=== PATIENT | male | born 1940 | race Caucasian/White ===

== ENCOUNTER 2016-11-26 16:15 | Emergency (ER) | payer MEDICARE, OTHER ==
[~2016-11-26] VITALS: Ht 170.2 cm; Wt 95.5 kg
[~2016-11-26 16:15] MED LIST: AMLO5TAB2 PO; ASPI-973 PO; LISI-567 PO; METO50TA3 PO; NITR0.4T SL; OMEG-38 PO; SIMV20TA4 PO; TRAZ-115 PO
[2016-11-26 16:27] VITALS: BP 137/69; PULSE 79; RESP 16; O2SAT 94
[2016-11-26 16:51] LABS: BASOPHILS % (AUTO) 0.2 % (0-3); EOSINOPHILS % (AUTO) 2.2 % (0-5); MONOCYTES % (AUTO) 11.9 % (4-12); Mean Corpuscular Hemoglobin 28.9 pg (27.0-35.0); Mean Corpuscular Volume 85.1 fL (81-100); NEUTROPHILS % (AUTO) 69.8 % (40-74); Platelet Count 210 bil/L (150-400)
--- NOTE | 2016-11-26 16:55 | ED.REPORT ---
HPI-Abd Pain M 40 and Over Date of Service Nov 26, 2016 ED Provider: Dr. Lang 76 y/o male presents the ED with a hx of bladder cancer s/p cystectomy, HTN, hypercholesterolemia and CAD s/p angioplasty who presents to the ED referred from Dr. Rankin complaining of severe lower abd pain that has been present for 1.5 weeks. Pt has a hx of an umbilical hernia and a chronically enlarged testicle that has been present for 1.5 years after trauma. Pain is exacerbated with touch. Pain is worse over the bladder. Associated symptoms include hematuria (This AM) and intermittent diarrhea and constipation. Pt denies vomiting and fever. Nursing Notes Stated Complaint: ABDOMINAL PAIN SENT DR RANKIN Chief Complaint: Male Abdominal Pain Nursing Notes Reviewed: Yes Allergies: Coded Allergies: chlorhexidine (Verified Adverse Reaction, Severe, Rash, 01/18/16) Scheduled Amlodipine (Amlodipine) 5 Mg Tablet 5 MG PO DAILY Amoxicillin/Clav K 875-125 mg (Augmentin 875-125 mg) 1 Each Tablet 1 TABLET PO BID Aspirin (Aspirin) 81 Mg Tablet 81 MG PO DAILY Lisinopril (Lisinopril) 20 Mg Tablet 20 MG PO BID Metoprolol Tartrate (Metoprolol Tartrate) 50 Mg Tablet 50 MG PO BID [place]-3/Dha/Epa/Fish Oil (Fish Oil 1,000 mg Softgel) 1 Each Capsule 1 EACH PO DAILY Simvastatin (Simvastatin) 20 Mg Tablet 20 MG PO HS Trazodone (Trazodone) 50 Mg Tablet 50 MG PO HS Scheduled PRN Nitroglycerin SL (Nitrostat) 0.4 Mg Tab.subl 0.4 MG SL Q5MIN PRN PRN ANGINA General Time Seen by MD: 16:55 Chief Complaint Abdominal pain Hx Obtained From: Patient Arrived By: Walk-in Sudden in Onset?: No Onset Occurred: More than a week ago... Symptom Duration: Since onset Location: : Abdomen lower (worse): Diffuse Quality: Painful Severity: Current: Mild Severity: Maximum: Moderate Associated with: Reports: Constipation, Diarrhea, Hematuria Past Medical History Past Medical History Bladder cancer Reports: COPD, Coronary artery disease, Hyperlipidemia, Hypertension Past Surgical History Cystectomy Reports: Angioplasty, Tonsillectomy Smoking History Former Smoker Social History Alcohol Use: "Social" Drug Use: Denies drug use Ambulatory Status Independent Review of Systems Basic Review of Systems Eyes: Vision NL, No discharge ENT: Hearing NL, No pain, No nasal congestion, No pharyngeal pain Neurologic: NL mental status, No weakness, No numbness Psychiatric: Normal thought content Constitutional: Denies: Fever Respiratory: Denies: Shortness of breath Cardiovascular: Denies: Chest pain GI: Reports: Abdominal pain, Constipation, Diarrhea, Denies: Vomiting Male: Reports Hematuria, Denies Dysuria Complete sys rev & neg: except as marked. Physical Exam Initial Vital Signs Vital Signs (First) Date Time Temp Pulse Resp B/P Pulse Ox O2 Delivery O2 Flow Rate FiO2 11/26/16 16:27 36.8 79 16 137/69 94 Room Air Initial VS: Reviewed Head / Eyes: Atraumatic, Normocephalic, PERRL ENT: Mucous membranes moist, Conjunctiva normal, No scleral icterus Neck: Supple, Full range of motion Extremities: Vascular intact, Neuro intact, No swelling, No tenderness Skin: Warm, Dry, No cyanosis Neurologic: Alert, Oriented, Nonfocal Psychiatric: Mood/affect normal, Behavior normal, Normal thought content General/Constitutional: Awake, Alert Respiratory / Chest: Breath sounds NL, Breath sounds = bilat, No respiratory distress, No rales, No rhonchi, No wheezing Cardiovascular: Heart rate NL, Regular rhythm, Heart sounds NL, Peripheral circulation NL Abdomen: Soft 1cm soft, reducable hernia. Suprapubic tenderness Back: Atraumatic, Full range of motion Male Genitourinary: Penis NL R hydrocele. No warmth or tenderness to testicles. Interpretation & Diagnostics Lab Results Interpretation Result Diagram: 11/26/16 1640 11/26/16 1640 Test 11/26/16 16:40 White Blood Count 9.0th/mm3 (3.8-10.1) Red Blood Count 5.44mil/mm3 (4.40-5.80) Hemoglobin 15.7g/dL (13.8-17.2) Hematocrit 46.3% (41.0-50.0) Mean Corpuscular Volume 85.1fL (81-100) Mean Corpuscular Hemoglobin 28.9pg (27.0-35.0) Mean Corpuscular Hemoglobin Concent 33.9% (32.0-37.0) Red Cell Distribution Width 14.2% (12.3-15.4) Platelet Count 210bil/L (150-400) Neutrophils (%) (Auto) 69.8% (40-74) Lymphocytes (%) (Auto) 15.7% (14-46) Monocytes (%) (Auto) 11.9% (4-12) Eosinophils (%) (Auto) 2.2% (0-5) Basophils (%) (Auto) 0.2% (0-3) Sodium Level 139mEq/L (134-144) Potassium Level 4.3mEq/L (3.5-5.2) Chloride Level 102mEq/L (97-108) Carbon Dioxide Level 22mmol/L (18-29) Blood Urea Nitrogen 20mg/dL (8-27) Creatinine 1.13mg/dL (0.76-1.27) Estimat Glomerular Filtration Rate 67mL/min (>59) Glucose Level 102mg/dL (60-99) Lactic Acid Level 0.9mmol/L (0.4-2.0) Calcium Level 9.3mg/dL (8.5-10.1) Magnesium Level 2.2mg/dL (1.6-2.6) Total Bilirubin 0.5mg/dL (0.0-1.2) Aspartate Amino Transf (AST/SGOT) 34U/L (0-50) Alanine Aminotransferase (ALT/SGPT) 48U/L (0-44) Alkaline Phosphatase 59U/L (25-160) Total Protein 7.1g/dL (6.4-8.4) Albumin 3.5g/dL (3.4-5.0) Lipase 14U/L (13-60) Hold Rucker Top Tube Received (Received) CT Abd / Pelvis Interpretation IMPRESSION: 1. Sigmoid diverticulitis without diverticular abscess or macroscopic free air. 2. Bilateral fat containing inguinal hernias, moderate to large on the right and small the left. 3. 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 Recommend followup to demonstrate stability. 3. Small hypervascular lesion within the spleen measuring up to 1.3 cm appears unchanged in size compared to the 09/01/14 study. Dictated by: Aguilar Lombardo M.D. on 11/26/2016 at 18:50 Study type: Abdominal CT IV contrast, Abdom CT oral contrast Interpretation / Wet Read by: Interpret - Radiologist Re-Eval/Medical Decision Med Decision/Clinical Course Lower abdominal tenderness and diarrhea with stable labs and vital signs, suggestive of diverticulitis, there are other multiple incidental findings which will need close follow-up but appears stable compared to a CAT scan from greater than 9 months ago. Patient generally is in no acute distress. Return and follow-up precautions given. Specifically there is no indication that he has a strangulated hernia based on clinical exam or imaging. Turn and follow-up precautions given. Time of Eval: 19:00 Patient Status: Condition improved Re-Evaluation/Progress Note: Updated pt of labs and imaging results. Discussed plan for discharge and follow up. All questions addressed. Counseled Regarding: Diagnosis, Lab results, Need for follow-up, When/why to return to ED Discharge & Departure Primary Impression: Diverticulitis Diverticulitis site: large intestine Diverticulitis bleeding: without bleeding Diverticulitis complication: without perforation or abscess Qualified Code: K57.32 - Diverticulitis of large intestine without perforation or abscess without bleeding Additional Impressions: Aortic dissection Aortic location: abdominal aorta Qualified Code: I71.02 - Dissection of abdominal aorta Hernia Splenic lesion Disposition: Home Vital Signs - All Vital Signs Date Time Temp Pulse Resp B/P Pulse Ox O2 Delivery O2 Flow Rate FiO2 11/26/16 19:11 37.0 88 16 169/63 95 Room Air 11/26/16 16:27 36.8 79 16 137/69 94 Room Air )( All Prior VS Reviewed: Yes Condition: Improved Additional Instructions: The reason for your pain seems to be diverticulitis, this explains why you have recently had diarrhea as well. Take the antibiotic Augmentin as directed. Use Tylenol for pain. You should follow-up very closely with your primary care doctor for further evaluation of multiple incidental but concerning CT findings including an infrarenal abdominal aortic dissection, bilateral inguinal hernias, and a hypervascular lesion in your spleen. I have given you a copy of your CAT scan so that you can take it directly to your primary care doctor. Keep a close eye on your blood pressure, continue to keep it under control. Return to the ER if you develop a high fever, severe pain, or other concerns. Referrals: Frenando Whitman DO (PCP) Brenton Hammonds MD Scribe Attestation Portions of this note were transcribed by Perlita Ventura and Dalton Denney I (Dr. Anup Dickerson) personally performed the history, physical exam and medical decision- making; I reviewed and confirmed the accuracy of the information in the transcribed note. Signed by: Perlita Ventura. Sissy, 11/26/2016, 1915 copies to: Fernando Whitman DO; Brenton Hammonds MD, Timothy S DO Nov 26, 2016 16:55 Dalton Dawson Nov 26, 2016 17:15 Perlita Ventura Nov 26, 2016 17:35
[2016-11-26 17:18] LABS: Magnesium 2.2 mg/dL (1.6-2.6)
[2016-11-26] MEDS ORDERED: 0.9% Sodium Chloride 1,000 ML IV ONE (17:20)
--- NOTE | 2016-11-26 18:59 | DRSVH ---
PROCEDURE: CT ABDOMEN AND PELVIS WITH CONTRAST ([id number]) INDICATIONS: lower abdominal pain, hematuria TECHNIQUE: After the administration of oral and intravenous contrast, 5 mm thick sections acquired from the diap hragms to the symphysis. 5 mm thick coronal and sagittal reformats were performed. For radiation do se reduction, the following was used: automated exposure control, adjustment of mA and/or kV accordi ng to patient size. COMPARISON: Outside Film, CT, CT ABD PELVIS W&WO CON, 01/09/2016, 15:30. FINDINGS: Image quality: Excellent. ABDOMEN: Lung bases: There is mild dependent atelectasis in the lung bases. There is nodular pleural thickeni ng along the hemidiaphragms again noted bilaterally. Heart size is normal. Solid organs: No focal hepatic lesions. The spleen is normal in size. There is a small hypervascul ar lesion within the spleen measuring up to 1.3 cm which appears increased in prominence. There are small dependent foci of hyperdensity in the gallbladder neck compatible with small gallstones. No ga llbladder wall thickening or pericholecystic fluid. Biliary system is non-dilated. Pancreas enhance s normally. No adrenal nodules. Kidneys demonstrate no hydronephrosis. Peritoneum and bowel: Stomach and small bowel loops are normal in caliber and wall thickness. There is colonic diverticulosis with associated inflammatory fat stranding and segmental wall thickening a long the sigmoid colon consistent with diverticulitis. No diverticular abscess or macroscopic free a ir. No free fluid. Nodes and vessels: No retroperitoneal or mesenteric adenopathy. Aorta and inferior vena cava are no rmal in caliber. There is a short segment dissection of the intrarenal abdominal aorta redemonstrate d. There is extensive atherosclerotic vascular calcification. Miscellaneous: No ventral hernias. PELVIS: Genitourinary: Bladder wall thickness is normal. Miscellaneous: There are bilateral fat containing inguinal hernias, small on the left and moderate t o large on the right. No inguinal adenopathy. Bones: No suspicious bony lesions. No vertebral body compression fractures. IMPRESSION: 1. Sigmoid diverticulitis without diverticular abscess or macroscopic free air. 2. Bilateral fat containing inguinal hernias, moderate to large on the right and small the left. 3. 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 Recommend followup to demonstrate stability. 3. Small hypervascular lesion within the spleen measuring up to 1.3 cm appears unchanged in size com pared to the 09/01/14 study. Dictated by: Aguilar Lombardo M.D. on 11/26/2016 at 18:50 Approved by: Aguilar Lombardo M.D. on 11/26/2016 at 18:57
[2016-11-26] MEDS ORDERED: AMOX-366 PO (19:07)
[2016-11-26 19:11] VITALS: BP 169/63; PULSE 88; RESP 16; O2SAT 95
== END 2016-11-26 19:05 | disposition home or self-care (01) ==
LOC: SED 16:15
DX: K57.32 Diverticulitis of large intestine without perforation or abscess without bleeding (principal); I71.02 Dissection of abdominal aorta; K40.90 Unilateral inguinal hernia, without obstruction or gangrene, not specified as recurrent; D73.89 Other diseases of spleen; I10 Essential (primary) hypertension; I25.10 Atherosclerotic heart disease of native coronary artery without angina pectoris; J44.9 Chronic obstructive pulmonary disease, unspecified; E78.5 Hyperlipidemia, unspecified; Z87.891 Personal history of nicotine dependence; Z88.8 Allergy status to other drugs, medicaments and biological substances
CPT/HCPCS: 36415; 74177; 80053; 83605; 83690; 83735; 85025; 96360; 99285; J7030; Q9967

== ENCOUNTER → 2017-03-23 | Day surgery (SDC) | payer MEDICARE ==
[~2017-03-23] VITALS: Ht 167.6 cm; Wt 99.3 kg
[2017-03-23] VITALS (10 sets, daily range): BP systolic 110–136; BP diastolic 44–60; PULSE 56–62; RESP 10–17; O2SAT 93–99
[~2017-03-23] MED LIST changes: +ALLO300T2 PO; -AMLO5TAB2 PO; +Acetaminophen IV 1,000 MG in IV Premix 1 EACH IV ONE; +Albuterol-Ipratropium 3 mL Inhalation Solution NEB PRN; +Atropine 0.4 mg/mL Inj IVPUSH PRN; +CeFAZolin 2 Gm/50 mL D5W Duplex Bag IV ONE; +CeFAZolin Inj 2 GM in IV Premix 1 EACH IV ONE; +EPHEDrine Sulfate 50 mg/mL Inj IVPUSH PRN; +EPHEDrine/NS 5 mg/mL 5 mL Syringe ONE; +HYDROmorphone 1 mg/mL Inj IVPUSH PRN; +Labetalol 5 mg/mL 20 mL Inj IV PRN; +Lactated Ringer's 1,000 ML IV ONE; +Lactated Ringer's 1,000 ML IV SCH; +Lactated Ringer's 500 ML IV PRN; +MetoCLOpramide 5 mg/mL 2 mL Inj IVPUSH PRN; +Mitomycin Inj 40 MG in Syringe 1 EACH IRRIGATION ONE; +Ondansetron 2 mg/mL 2 mL Inj IVPUSH PRN; +Ondansetron 2 mg/mL 2 mL Inj ONE; +Phenylephrine 10,000 mCg/mL Inj IVPUSH PRN; +Propofol 10,000 mCg/mL 20 mL Inj ONE; +ROSU40TA PO; +SILO8CAP PO; -SIMV20TA4 PO; -TRAZ-115 PO; +fentaNYL-PF 50 mCg/mL 2 mL Inj IVPUSH PRN; +fentaNYL-PF 50 mCg/mL 2 mL Inj ONE
--- NOTE | 2017-03-23 08:50 | PCM.HPANE ---
Patient Data Date of Service: Mar 23, 2017 Surgeon Admitting Provider: Attending Provider:Brenton Hammonds MD Primary Care Physician:Tu Farah MD Other Provider:Jan Solorzano Anesthesia Reason for Visit Recurrent Bladder Cancer Ht/WT & BMI Height (Feet): 5 Height (Inches): 6.00 Weight (Kilograms): 99.340 Body Mass Index 35.00 Allergies Coded Allergies: chlorhexidine (Verified Adverse Reaction, Severe, Rash, 03/09/17) Past Anesthesia History Anesthesia History: Denies:: Abnormal Airway, Anesthesia Reactions, Difficult Intubation, Fam Anesthesia Reaction, Malignant Hyperthermia Diabetes History Hx Diabetes?: No MRSA MRSA: No Medications Blood Thinner: Aspirin Hypertension Medication: Yes Home Meds Incl Beta Alisha: Yes (metoprolol) Date Beta Alisha Taken: Mar 23, 2017 Time Beta Alisha Taken: 0500 Reported Medications Nitroglycerin SL (Nitrostat)0.4 Mg Tab.subl0.4 Mg SL Q5MIN PRN For Chest Pain # 1 BOTTLE 03/09/17 Metoprolol Tartrate 50 Mg [id number] Mg PO BID 30 Days Ref 0 03/09/17 Lisinopril 20 Mg [id number] Mg PO BID 30 Days Ref 0 03/09/17 [place]-3/Dha/Epa/Fish Oil (Fish Oil 1,000 mg Softgel)1 Each Capsule1 Each PO DAILY 03/09/17 Rosuvastatin Calcium (Crestor)40 Mg [id number] Mg PO DAILY 30 Days Ref 0 03/09/17 Aspirin 81 Mg [id number] Mg PO DAILY Ref 0 03/09/17 Allopurinol 300 Mg [id number] Mg PO DAILY Ref 0 03/09/17 Discontinued Reported Medications Silodosin (Rapaflo)8 Mg Capsule8 Mg PO DAILY 03/09/17 History History of ENT Problems?: Yes HEENT History: Positive for:: Cataracts (bilateral surgery) Sinus Problem (chronic) Denies:: Abnormal Airway Difficult Intubation Dysphagia Glaucoma Hearing Problem TMJ Denture Type: Full- Upper Teeth Condition: Missing Teeth Hx of Heart Problems?: Yes Cardiovascular History: Positive for:: Abdominal Aortic Aneurism (mild enlargement- 4.3 cm being followed by cardiology) Cardiac Surgery (hx of stents 2010) Hypertension Denies:: Chest Pain Congestive Heart Failure Edema Heart Murmur Irregular Heartbeat Pacemaker Thrombophlebitis Hx of Respiratory Problem?: Yes Respiratory History: Positive for:: COPD Dyspnea (intermittent) Emphysema Denies:: Chest Surgery Pneumonia Tuberculosis Use of C-PAP Machine (does not tolerate CPAP- MARILY+) Use of Inhalers / NEBS Hx Neurologic Problems?: No Neurological History: Denies:: CVA Headaches Multiple Sclerosis Parkinson's Disease Seizures Hx of GI Problems?: Yes Hx of Problems?: Yes Genitourinary History: Denies:: Kidney Stones Other Pertinent History: bladder tumor current admission problem, hx of cystectomy Male Hx: Positive for:: Prostate Problems (BPH) Scrotal Mass (hx of chronic enlarged testicle) Denies:: Testicular Surgery Skin History: Denies:: History Skin Disorders? Pressure Ulcers Hx Musculoskeletal Problems?: Yes Musculoskeletal History: Positive for:: Musculoskeletal Trauma (prior hx shoulder surgery) Denies:: Back Injury Hx of Psycho/Social Problems?: No Hx Surgeries?: Yes (tonsil, cystectomy) Hx Any Other Health Problems?: Yes Other History: Positive for:: Cancer (bladder) Hospitalization Denies:: Endocrine Disease Thyroid Disease History Blood Transfusions: Denies:: Blood Transfuse Reaction Blood Transfusions Hx Diabetes: No Hx Alcohol Use: YesAlcoholic Drinks Per Day: 2-3 drinks weekHx Substance Use: No Smoking Status: Former Smoker Have You Smoked inLast 12 mo: No Stop/Bang P-Blood Pressure: treated: Yes B- Body Mass Index > 35 kg/m2: Yes A- Age over 50: Yes N- Neck Large Circumference: No G- Gender Male: Yes Risk Assessment Category Category 1A: Patient has history of documented sleep apnea, and HAS NOT received any narcotic, sedative or anesthesia administration during this stay. Category 1B: Patient has history of documented sleep apnea, and HAS received any narcotic , sedative or anesthesia administration during this stay Category 2: Patient has SUSPECTED Obstructive Sleep Apnea, and HAS received any narcotic , sedative or anesthesia administration during this stay. Category 3: Patient has SUSPECTED Obstructive Sleep Apnea and HAS NOT received narcotic, sedative or anesthesia administration during this stay. Category 4: Outpatient in Procedural Areas with known sleep apnea or who screen positive for High Risk via the STOP/BANG questionnaire. Exam Exam Vital Signs Vital Signs Date Time Temp Pulse Resp B/P Pulse Ox O2 Delivery O2 Flow Rate FiO2 03/23/17 07:46 35.7 56 17 132/57 95 Room Air General Appearance: Alert, Oriented X3 HEENT/AIRWAY: MP 2 Lungs: Clear to Auscultation Heart: Exam Unremarkable, Regular Rate/Rhythm Meds/Labs/Diagnostics Admission Meds Current Medications Lactated Ringer's (Lr) 1,000 ml @ ud STK-MED ONCE IV Last administered on 03/23t 07:42; Start 03/23/17 at 07:42; Stop 03/23/17 at 07:43; Status DC Plan Impression Patient chart reviewed, patient interviewed and anesthestic plan with risks, benefits, and alternatives discussed, and informed consent obtained. NPO per Anesth. Guidelines: Yes ASA Physical Status: ASA2 Mod Systemic Disease Anesthetic Plan: GA Bene/Risks/Altern/Consents: Yes HP Complete Prior to Induction: Yes Tod Mcmahon MD Mar 23, 2017 08:12
--- NOTE | 2017-03-23 09:49 | PCM.ANEP1 ---
Post Anesthesia PACU Phase 1 Assessment Date of Service: Mar 23, 2017 Vital Signs Vital Signs Date Time Temp Pulse Resp B/P Pulse Ox O2 Delivery O2 Flow Rate FiO2 03/23/17 09:45 59 11 114/56 94 Room Air 03/23/17 09:40 62 15 110/59 97 Simple Mask 8 03/23/17 09:35 36.5 112/44 03/23/17 07:46 35.7 56 17 132/57 95 Room Air Anesthetic Administered: GA Level of Alertness: Awake, talking CORONADO's with Equal Strength: Yes Pain: No Nausea or Vomiting: No CV Function & Hydration Stable: Yes Airway Device: Oralpharangeal Airway Oxygen Delivery: Simple Mask Lungs: Clear to Auscultation PACU Phase 2 Assessment Complications: No Patient Instructions Provided: N/A Tod Mcmahon MD Mar 23, 2017 09:49
--- NOTE | 2017-03-23 10:56 | OP ---
[address] [address] OPERATIVE REPORT PATIENT: JEWEL ROCA : 1940 MR#: [id number] ADMIT: 03/23/2017 JOB ID: [id number] DATE OF SURGERY: 03/23/2017 SURGEON: Brenton Hammonds MD PREOPERATIVE DIAGNOSIS(ES): Recurrent bladder cancer POSTOPERATIVE DIAGNOSIS(ES): INCOMPLETE DICTATION: Dictation ends here
--- NOTE | 2017-03-23 23:05 | OP ---
[address] [address] OPERATIVE REPORT PATIENT: JEWEL ROCA : 1940 MR#: [id number] ADMIT: 03/23/2017 JOB ID: [id number] DATE OF SURGERY: PREOPERATIVE DIAGNOSIS(ES): Recurrent transitional cell carcinoma of the bladder (right anterior bladder neck 11 o'clock). POSTOPERATIVE DIAGNOSIS(ES): Recurrent transitional cell carcinoma of the bladder (right anterior bladder neck 11 o'clock). OPERATION PERFORMED: 1. Cystoscopy and transurethral resection of bladder tumor. 2. Instillation mitomycin-C (20 mg). SURGEON: Brenton Hammonds MD. ANESTHESIOLOGIST: Tod Mcmahon MD. ANESTHESIA: General. FINDINGS: Urethra normal. External sphincter intact. Prostate 4.5 cm length with high median bar. Papillary regrowth is noted at approximately 11 o'clock just at the bladder neck. The resection bed at the right posterior lateral wall is well healed. Orifices in normal position. No other tumor or stone seen PROCEDURE SUMMARY: The patient was positioned supine and was administered general anesthesia. He was then repositioned semi-lithotomy and lower abdomen, genitalia and groin were prepped and draped in sterile fashion. The 25-[place] resectoscope was then passed into the lower urinary tract with the findings as described above. The scope was then fitted with Guerrier Working Element and using the loop the tumor was resected. The tissue was gathered in total and was submitted to pathology for routine gross and microscopic examination. The resection bed was then extensively cauterized for hemostasis. All instrumentation was then removed. A 16-[place] Thomas catheter was then inserted and the bladder contents were drained. Mitomycin-C 20 cc suspended in 20 mg sterile saline was then instilled in the bladder for anticipated two hour post procedural retention.
--- NOTE | 2017-03-25 12:24 | PATH ---
SURGICAL PATHOLOGY Attending Physician:Brenton Hammonds MD CASE STATUS: Signed Out PATIENT NAME: JEWEL ROCA PID: [id number] : 1940 DATE COLLECTED:03/23/2017 19:21 SPECIMEN: Bladder Neck CLINICAL HISTORY: RECURRENT BLADDER CANCER 1). RIGHT ANTERIOR BLADDER NECK AT 11 O'CLOCK FINAL DIAGNOSIS: Right Anterior Bladder Neck at 11 o'clock, Transurethral Resection of Bladder Tumor: Papillary urothelial carcinoma, low grade; see case summary. CASE SUMMARY Procedure: TURBT. Tumor site: Right anterior bladder neck at 11 o'clock. Histologic type: Papillary urothelial carcinoma, noninvasive. Histologic grade: Low grade. Muscularis propria presence: No muscularis propria identified. Lymphovascular invasion: Not identified. Microscopic tumor extension: Noninvasive papillary carcinoma. ICD10: Z85.51 NOTE: As part of routine quality cloth tester, Dr. Wright has also reviewed this case and agrees with the above interpretation. GROSS DESCRIPTION: The specimen is received in one formalin filled container labeled with the patient's name, sublabeled "right anterior bladder neck at 11:00" and consists of a 0.4 x 0.4 x 0.4 CM portion of tissue which is entirely submitted in one cassette. 03/23/2017DC ICD-9 CODES: CPT CODES: 53210 Electronically Signed Out Kana Damian MD, Ph.D. [facility] [address], [place] [address] Technical component performed at [facility], [address], [place], [address]
== END | disposition home or self-care (01) ==
LOC: SAS 07:13
PROVIDERS: ATTEND Specialist
DX: C67.5 Malignant neoplasm of bladder neck (principal); N40.1 Benign prostatic hyperplasia with lower urinary tract symptoms; R31.9 Hematuria, unspecified; I10 Essential (primary) hypertension; Z87.440 Personal history of urinary (tract) infections; Z79.82 Long term (current) use of aspirin
CPT/HCPCS: 52240; J0131; J0690; J2405; J2704; J3010; J7120; J9280